=== PATIENT | male | born 1950 | race Asian ===

== ENCOUNTER 2021-11-14 16:51 | Outpatient (CLI) | payer MEDICARE ==
[2021-11-15 11:23] LABS: SARS-CoV-2 PCR by NAA Not Detected (NotDetected)
== END 2021-11-14 16:52 | disposition home or self-care (01) ==
LOC: CSHLAB 16:51
PROVIDERS: ATTEND Internal Medicine Gastroenterology
DX: Z20.822 Contact with and (suspected) exposure to COVID-19 (principal)
CPT/HCPCS: U0003; U0005

== ENCOUNTER 2021-11-18 11:43 | Day surgery (SDC) | payer MEDICARE ==
[2021-11-15 10:59] VITALS: BMI 25.0
[2021-11-18] MEDS ORDERED: PROPOFOL 40 ML ONE (11:57)
[2021-11-18] MEDS ORDERED: Lidocaine 2% MPF 10 ML AMP (For Epidural Use) ONE (11:58)
[2021-11-18] MEDS ORDERED: Lidocaine 1% MPF 2 ML VIAL ONE (12:09)
[2021-11-18] MEDS ORDERED: PHENYLEPHRINE-NS 100 MCG/ML 10 ML SYRINGE ONE (12:39)
== END 2021-11-18 13:37 | disposition home or self-care (01) ==
LOC: CSHSDC 11:43
PROVIDERS: ATTEND Internal Medicine Gastroenterology
PROC: 0DJD8ZZ Inspection of Lower Intestinal Tract, Via Natural or Artificial Opening Endoscopic (ICD-10-PCS; principal; 2021-11-18)
DX: K57.30 Diverticulosis of large intestine without perforation or abscess without bleeding (principal); K64.9 Unspecified hemorrhoids; R19.5 Other fecal abnormalities; E11.9 Type 2 diabetes mellitus without complications; I10 Essential (primary) hypertension; E78.5 Hyperlipidemia, unspecified; J30.9 Allergic rhinitis, unspecified
CPT/HCPCS: 36416; J2704